=== PATIENT | male | born 1940 | race Caucasian/White ===

== ENCOUNTER 2021-08-13 09:23 | Day surgery (SDC) | payer MEDICARE ==
[2021-08-06 13:20] VITALS: BMI 32.8
[2021-08-13] MEDS ORDERED: Lidocaine 1% MPF 2 ML VIAL ONE (09:53)
[2021-08-13] MEDS ORDERED: Bupivacaine PF 0.5% 30 ML VIAL ONE (10:06)
[2021-08-13] MEDS ORDERED: Neomycin-Polymyxin 1 ML AMP ONE (10:06)
[2021-08-13] MEDS ORDERED: Fentanyl 100 MCG/2 ML VIAL ONE (10:31)
[2021-08-13] MEDS ORDERED: PROPOFOL 20 ML ONE (10:31)
== END 2021-08-13 12:35 | disposition home or self-care (01) ==
LOC: CSHSDC 09:23
PROVIDERS: ATTEND Podiatrist Foot & Ankle Surgery
PROC: 0QBP0ZZ Excision of Left Metatarsal, Open Approach (ICD-10-PCS; principal; 2021-08-13)
DX: M21.622 Bunionette of left foot (principal)
CPT/HCPCS: J0690; J2704; J3010; S0020